=== PATIENT | female | born 1980 ===

== ENCOUNTER 2018-07-20 12:05 | Emergency (ER) | payer OTHER ==
[2018-07-20 12:18] VITALS: BMI 37.8
[2018-07-20 12:21] VITALS: RESP 18; O2SAT 98
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
[2018-07-20 12:49] LABS: SQUAMOUS EPITHIAL 7 /hpf (0-5); URINE BACTERIA MOD (<OCC); URINE BILIRUBIN NEGATIVE (NEGATIVE); URINE BLOOD NEGATIVE (NEGATIVE); URINE CLARITY Hazy (Clear); URINE COLOR Yellow (YELLOW); URINE GLUCOSE (UA) NORMAL (Normal); URINE LEUKOCYTE ESTERASE 3+ Leu/uL (Negative); URINE PROTEIN NEGATIVE (NEGATIVE); URINE UROBILINOGEN NORMAL mg/dL (0.2-1.0)
[2018-07-20 14:37] VITALS: PULSE 70; TEMP 98.2
[2018-07-20 15:04] VITALS: BP 110/74
== END 2018-07-20 15:03 | disposition home or self-care (01) ==
LOC: C.ER 12:05
DX: M25.559 Pain in unspecified hip (principal)
CPT/HCPCS: 81001; 87086; 99284; J8540